=== PATIENT | female | born 2000 | race Two or more races ===

== ENCOUNTER 2020-06-17 16:34 | Emergency (ER) | payer OTHER ==
[2020-06-17] MEDS ORDERED: AMOXICILLIN TR/POT CLAVULANATE 875-125 MG TAB PO ONE (18:28)
--- NOTE | 2020-06-17 18:36 | ER Document Report ---
ED General - General Chief Complaint: Cat Bite Stated Complaint: CAT BITE Primary Care Provider: ALEXA MOLINA DO [ACTIVE STAFF] - Follow up as needed - HPI Notes: Chief Complaint: Cat bite right hand Historian: History obtained from patient HPI: This is a 20-year-old female presents to the ER complaining of a cat bite to her right hand just prior to arrival. Patient this is her own house cat she is try to give her a bath and cat turned around and bit her in thenar eminence right hand with some superficial scratches to the palmar surface. Patient cleaned wound with peroxide and noticed some clear fluid drainage from the palmar wound. Patient says her tetanus is up-to-date. Cat has had vaccinations in the past unsure if rabies is up-to-date, though she has had the cat for multiple years and is a house cat and acting appropriately. ROS: Constitutional: no fevers. HEENT: no REYES, sore throat, or vision changes. CV: no chest pain or palpitations. Resp: no cough or SOB. GI: no abdominal pain, or n/v/d. : no dysuria, hematuria, or incont. msk-right hand cat bite PMHx: Reviewed and agree as charted by RN. PSHx: Reviewed and agree as charted by RN. SOCHx: Reviewed and agree as charted by RN. FHX: No significant familial comorbid conditions directly related to patient complaint Current Medications: Reviewed and agree with the patient medications as charted by the RN. Allergies: Reviewed and agree with the listed allergies as charted by the RN Physical Exam: Vitals: Reviewed in chart as documented by RN. General: Alert and in NAD. Head: Normocephalic; atraumatic Eyes: PERRLA, Conjunctivae clear sclerae non-icteric bilat ENT: no soft palate swelling or uvular deviation Neck: trachea midline, no unilateral swelling/tenderness/lymphadenopathy CV: RRR, no M/R/G; symmetric distal pulses Resp: respirations even and unlabored, CTA bilat. GI: abd soft and nondistended. NTTP. normal BS. no masses/HSM. no CVAT bilat MSK: Right handmild swelling to the thenar eminence with small puncture wound. Superficial abrasions to mid palmar side and dorsum of the first carpal. No active bleeding from wounds. Mildly tender to palpation. Patient has full range of motion of thumb and digits. Radial pulse 2+. Cap refill less than 2 seconds distally. Sensory intact diffusely. Skin: warm, moist, good turgor. no rash/lesions Neuro: Alert and oriented X 4. following CN 2-12 intact. no unilateral weakness/numbness Psych: No SI/HI or AH/VH. Medical Decision-Making: Medical Decision-making/Differential Diagnosis: Consider various etiologies including but not limited to skin/soft tissue structure injury, MSK injury, strain/sprain, fracture, dislocation, bursitis, tendonitis, contusion, ect Plan-we will provide wound care and irrigate wounds. Patient given first dose of Augmentin in the ED and was sent home with a prescription. Ortho hand referral was given due to high incidence of cat bite infections. Extensive discussion was had with patient regarding infection risks with cat bites and to make sure she goes to orthopedic hand follow-up or ER if she is worsening signs. I do not feel rabies vaccinations is concerning since this is her her own personal pet and bite was provoked. She will check the cat's teeth when she gets home to make sure no broken teeth are seen as we did not have imaging to rule out foreign body at patient's request in the ED. Return factors were discussed. PCP recheck in 3 days. This course of action was discussed with the patient and/or family. They were amenable to this, verbalized understanding, and were without further questions. - Related Data Allergies/Adverse Reactions: No Known Allergies Allergy (Unverified 06/17/20 18:28) Past Medical History - Social History Smoking Status: Never Smoker Frequency of alcohol use: Rare Drug Abuse: None Family History: Reviewed & Not Pertinent Patient has homicidal ideation: No Physical Exam - Vital signs Vitals: Temp Pulse Resp BP Pulse Ox 98.8 F 92 16 118/77 96 06/17/20 16:38 06/17/20 16:38 06/17/20 16:38 06/17/20 16:38 06/17/20 16:38 Course - Vital Signs Vital signs: Temp Pulse Resp BP Pulse Ox 98.8 F 92 16 118/77 96 06/17/20 16:38 06/17/20 16:38 06/17/20 16:38 06/17/20 16:38 06/17/20 16:38 - Laboratory Results Critical Laboratory Results Reviewed: No Critical Results - Radiology Results Critical Radiology Results Reviewed: No Critical Results Discharge - Discharge Clinical Impression: Cat bite of right hand Qualifiers: Encounter type: initial encounter Qualified Code(s): S61.451A - Open bite of right hand, initial encounter Condition: Stable Disposition: HOME, SELF-CARE Instructions: Animal Bites ([facility]) Additional Instructions: Clean wound twice a day. Keep clean and dry. Take medications as prescribed. Tylenol Motrin for pain or swelling. Call orthopedics and schedule a follow-up appointment for soon as possible. If you have increased swelling, redness, drainage, pain you need to be reevaluated immediately as cat bites have a very high risk of infection and can be extremely serious. Have your primary doctor recheck the wounds in 3 days. Return to the ER if your condition worsens. Also check your cats teeth when you get home to make sure no broken teeth are visualized, if you do see any broken teeth legs return for x-rays of your hand. Prescriptions: Amoxicillin/Potassium Clav [Augmentin 875-125 Tablet] 1 tab PO BID #20 tab Referrals: ALEXA MOLINA, [ACTIVE STAFF] - Follow up as needed
[2020-06-17 19:09] VITALS: BP 118/68
== END 2020-06-17 19:08 | disposition home or self-care (01) ==
LOC: ER 16:34
DX: S61.451A Open bite of right hand, initial encounter (principal); W55.01XA Bitten by cat, initial encounter; Y93.K9 Activity, other involving animal care
CPT/HCPCS: 99283; J3490